=== PATIENT | female | born 1990 | race Hispanic/Latino ===

== ENCOUNTER 2020-03-05 19:53 | Emergency (ER) | payer SELFPAY ==
[~2020-03-05] VITALS: Ht 154.9 cm; Wt 54.9 kg
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
[2020-03-05 21:07] VITALS: BP 112/76
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
== END 2020-03-05 21:20 | disposition home or self-care (01) ==
LOC: ER 20:02
DX: S06.0X0A Concussion without loss of consciousness, initial encounter (principal); S13.4XXA Sprain of ligaments of cervical spine, initial encounter; V43.62XA Car passenger injured in collision with other type car in traffic accident, initial encounter; Y92.488 Other paved roadways as the place of occurrence of the external cause; F17.210 Nicotine dependence, cigarettes, uncomplicated
CPT/HCPCS: 70450; 72125; 99283

== ENCOUNTER 2020-08-25 19:33 | Emergency (ER) | payer SELFPAY ==
[~2020-08-25] VITALS: Ht 154.9 cm; Wt 54.9 kg
[2020-08-25] MEDS ORDERED: CLINDAMYCIN HC150 MG PO (20:29)
[2020-08-25] MEDS ORDERED: PERIDEX473 M1 PO (20:31)
== END 2020-08-25 21:15 | disposition home or self-care (01) ==
LOC: ER 20:28
DX: K08.89 Other specified disorders of teeth and supporting structures (principal); K02.9 Dental caries, unspecified
CPT/HCPCS: 99282